=== PATIENT | male | born 1950 | race Caucasian/White ===

== ENCOUNTER → 2017-04-10 | Outpatient (CLI) | payer MEDICARE ==
[~2017-04-10] MED LIST: AZAT50TA20 PO; CALCITRIOL PO; DIPH1TAB PO; ENOX80SY5 SQ; OMEG1CAP24 PO; OMEP20TA9 PO; OXYC5TAB3 PO; PRED5TAB27 PO; RISE150T3 PO; SILO4CAP PO; TEST75GE TP; VALS40TA2 PO; WARF2.5T PO; WARF5TAB PO
[2017-04-10 12:50] LABS: BLOOD UREA NITROGEN 23 mg/dL (7-18)
[2017-04-10 12:57] LABS: ASPARTATE AMINO TRANSFERASE 24 U/L (15-37); PROSTATE SPECIFIC ANTIGEN 0.68 ng/mL (0.00-4.00)
[2017-04-10 15:52] LABS: HEMATOCRIT 38.8 % (39.2-51.8); HEMOGLOBIN 11.9 g/dL (13.7-18.0); WHITE BLOOD COUNT 10.2 x10^3/uL (3.4-10)
[2017-04-10 16:20] LABS: ANISOCYTOSIS 1+; POLYCHROMASIA 1+; SPHEROCYTES 1+
[2017-04-11 08:07] LABS: TESTOSTERONE TOTAL 133 ng/dL (264-916)
== END | disposition home or self-care (01) ==
LOC: CFH 11:22
PROVIDERS: ATTEND Urology
DX: N28.89 Other specified disorders of kidney and ureter (principal); Z85.528 Personal history of other malignant neoplasm of kidney
CPT/HCPCS: 36415; 71020; 74000; 80053; 84153; 84403; 85025

== ENCOUNTER → 2018-05-09 | Outpatient (CLI) | payer MEDICARE | END | disposition home or self-care (01) | LOC: CFH 13:01 | PROVIDERS: ATTEND Urology | DX: N28.89 Other specified disorders of kidney and ureter (principal); E83.59 Other disorders of calcium metabolism; N29 Other disorders of kidney and ureter in diseases classified elsewhere; Z90.5 Acquired absence of kidney | CPT/HCPCS: 74018 ==

== ENCOUNTER 2018-07-09 17:13 | Emergency (ER) | payer MEDICARE ==
[~2018-07-09] VITALS: Ht 162.6 cm; Wt 70.0 kg
[2018-07-09 17:41] VITALS: BP 141/87
[2018-07-09] MEDS ORDERED: SODIUM CHLORIDE FLUSH 10ML SYR IVF ONE (18:00)
[2018-07-09] MEDS ORDERED: ETOMIDATE 20 MG/10 ML ONE (18:31)
[2018-07-09] MEDS ORDERED: FENTANYL PF 100 MCG/2ML ONE (18:31)
--- NOTE | 2018-07-09 18:55 | NUR ---
SEE PROCEDURAL SEDATION SHEET.
[2018-07-09] MEDS ORDERED: FENTANYL PF 100 MCG/2ML IVPush ONE (19:00)
[2018-07-09] MEDS ORDERED: ETOMIDATE 20 MG/10 ML IVPush ONE (19:00)
== END 2018-07-09 19:48 | disposition home or self-care (01) ==
LOC: ED 18:51
DX: S43.015A Anterior dislocation of left humerus, initial encounter (principal); X58.XXXA Exposure to other specified factors, initial encounter; Y93.89 Activity, other specified; Y92.89 Other specified places as the place of occurrence of the external cause; Y99.8 Other external cause status
CPT/HCPCS: 23650; 99285